=== PATIENT | male | born 1975 | race African-American/Black ===

== ENCOUNTER 2016-07-22 00:50 | Emergency (ER) | payer SELFPAY | END 2016-07-22 03:00 | disposition home or self-care (01) | LOC: D.ER 00:50 | DX: S01.511A Laceration without foreign body of lip, initial encounter (principal); Y04.1XXA Assault by human bite, initial encounter; Y93.89 Activity, other specified; Y92.018 Other place in single-family (private) house as the place of occurrence of the external cause; Y99.9 Unspecified external cause status; Z86.73 Personal history of transient ischemic attack (TIA), and cerebral infarction without residual deficits ==

== ENCOUNTER 2018-04-13 20:19 | Emergency (ER) | payer MEDICAID ==
[~2018-04-13] VITALS: Ht 162.6 cm; Wt 68.2 kg
[2018-04-13 20:21] VITALS: Ht 162.6 cm; Wt 68.2 kg
[2018-04-13 20:55] LABS: EOSINOPHILS 1.1 % (0-7); HEMATOCRIT 41.4 % (42.0-54.0); HEMOGLOBIN 14.3 g/dL (13.5-17.5); IMMATURE GRANULOCYTES 0.2 % (0-5); LYMPHOCYTES 27.1 % (15-50); MCH 34.5 pg (26.0-34.0); MCHC 34.5 g/dL (31.0-37.0); MCV 99.8 fL (80.0-100.0); MEAN PLATELET VOLUME 10.2 fL (7.4-10.4); NEUTROPHILS 60.6 % (40-80); PLATELET COUNT 120 10x3/uL (130-400); RBC 4.15 10x6/uL (4.20-6.10); RDW 13.7 % (11.5-14.5); WBC 5.5 10x3/uL (4.8-10.8)
[2018-04-13 21:16] LABS: ALBUMIN 4.5 g/dL (3.4-5.0); ALKALINE PHOSPHATASE 106 U/L (46-116); ALT (SGPT) 143 U/L (10-68); BILIRUBIN - TOTAL 1.34 mg/dL (0.2-1.3); CALC OSMOLALITY 279 mosm/kg (275-300); CARBON DIOXIDE 27.3 mmol/L (21.0-32.0); CHLORIDE - SERUM 104 mmol/L (98-107); CREATININE - SERUM 0.9 mg/dL (0.6-1.3); GLUCOSE 93 mg/dL (74-106); POTASSIUM - SERUM 4.7 mmol/L (3.5-5.1); PROTEIN - SERUM 8.4 g/dL (6.4-8.2); SODIUM 142 mmol/L (136-145); UREA NITROGEN 5 mg/dL (7-18); eGFR NON AFRICAN AMERICAN > 90 mL/min (90-120)
[2018-04-14 00:10] VITALS: BP 122/89
== END 2018-04-14 00:06 | disposition home or self-care (01) ==
LOC: D.ER 20:19
PROVIDERS: Family Medicine
DX: F10.129 Alcohol abuse with intoxication, unspecified (principal); Z86.73 Personal history of transient ischemic attack (TIA), and cerebral infarction without residual deficits; I10 Essential (primary) hypertension; F17.200 Nicotine dependence, unspecified, uncomplicated

== ENCOUNTER 2018-07-11 21:09 | Emergency (ER) | payer MEDICAID ==
[~2018-07-11] VITALS: Ht 162.6 cm; Wt 63.6 kg
[2018-07-11 21:12] VITALS: Ht 162.6 cm; Wt 63.6 kg
[2018-07-11] MEDS ORDERED: BLOOD PRESSURE MED (21:14)
[2018-07-11] MEDS ORDERED: "\\\"WATER PILL\\\"" (21:14)
[2018-07-11] MEDS ORDERED: PSYCH MEDS (21:14)
[2018-07-11 21:34] LABS: BASOPHILS 1.7 % (0-2); EOSINOPHILS 0.8 % (0-7); HEMATOCRIT 39.1 % (42.0-54.0); HEMOGLOBIN 13.2 g/dL (13.5-17.5); IMMATURE GRANULOCYTES 0.4 % (0-5); MCH 32.8 pg (26.0-34.0); MCHC 33.8 g/dL (31.0-37.0); MEAN PLATELET VOLUME 9.7 fL (7.4-10.4); MONOCYTES 8.4 % (2-11); NEUTROPHILS 53.7 % (40-80); PLATELET COUNT 110 10x3/uL (130-400); RBC 4.03 10x6/uL (4.20-6.10); RDW 13.6 % (11.5-14.5); WBC 7.3 10x3/uL (4.8-10.8)
[2018-07-11 21:49] LABS: ALBUMIN 3.7 g/dL (3.4-5.0); ALKALINE PHOSPHATASE 117 U/L (46-116); ALT (SGPT) 137 U/L (10-68); BILIRUBIN - TOTAL 0.91 mg/dL (0.2-1.3); CALC OSMOLALITY 276 mosm/kg (275-300); CALCIUM 8.5 mg/dL (8.5-10.1); CARBON DIOXIDE 23.9 mmol/L (21.0-32.0); CHLORIDE - SERUM 100 mmol/L (98-107); CREATININE - SERUM 1.1 mg/dL (0.6-1.3); GLUCOSE 98 mg/dL (74-106); POTASSIUM - SERUM 3.9 mmol/L (3.5-5.1); PROTEIN - SERUM 7.7 g/dL (6.4-8.2); SODIUM 139 mmol/L (136-145); UREA NITROGEN 9 mg/dL (7-18); eGFR NON AFRICAN AMERICAN 78 mL/min (90-120)
[2018-07-11 21:52] LABS: AMYLASE - SERUM 152 U/L (25-115); LIPASE 637 U/L (73-393)
[2018-07-11 21:55] LABS: TROPONIN-I < 0.017 ng/mL (0.000-0.060)
[2018-07-11 22:17] LABS: APPEARANCE CLEAR (CLEAR); COLOR YELLOW (YELLOW); SPECIFIC GRAVITY 1.005 (1.005-1.020)
[2018-07-11 22:18] LABS: BILIRUBIN NEGATIVE (NEGATIVE); GLUCOSE NEGATIVE (NEGATIVE); KETONE NEGATIVE (NEGATIVE); NITRITE NEGATIVE (NEGATIVE); PROTEIN NEGATIVE (NEGATIVE); UROBILINOGEN NORMAL (NORMAL)
[2018-07-11] MEDS ORDERED: ZOFRAN ODT4 MG/UDTAB PO (22:45)
[2018-07-11] MEDS ORDERED: NORCO 7.5/325 T1 TA1 PO (22:46)
[2018-07-11 23:47] VITALS: BP 120/85
== END 2018-07-11 23:48 | disposition home or self-care (01) ==
LOC: D.ER 21:09
PROVIDERS: Emergency Medicine
DX: K85.90 Acute pancreatitis without necrosis or infection, unspecified (principal); R79.89 Other specified abnormal findings of blood chemistry